=== PATIENT | female | born 1955 | race Caucasian/White ===

== ENCOUNTER 2022-04-11 10:34 | Outpatient (CLI) | payer MEDICARE, BC | END 2022-04-11 10:35 | disposition home or self-care (01) | LOC: CSHMAMMO 10:34 | PROVIDERS: ATTEND Family Medicine | DX: Z12.31 Encounter for screening mammogram for malignant neoplasm of breast (principal) | CPT/HCPCS: 77063; 77067 ==

== ENCOUNTER 2024-04-19 11:56 | Outpatient (CLI) | payer MEDICARE | END 2024-04-19 11:57 | disposition home or self-care (01) | LOC: CSHMAMMO 11:56 | PROVIDERS: ATTEND Student in an Organized Health Care Education/Training Program | DX: Z12.31 Encounter for screening mammogram for malignant neoplasm of breast (principal) | CPT/HCPCS: 77063; 77067 ==

== ENCOUNTER 2024-11-04 09:44 | Outpatient (CLI) | payer MEDICARE | END 2024-11-04 09:45 | disposition home or self-care (01) | LOC: CSHMAMMO 09:44 | PROVIDERS: ATTEND Family Medicine | DX: Z78.0 Asymptomatic menopausal state (principal); M85.89 Other specified disorders of bone density and structure, multiple sites; M81.0 Age-related osteoporosis without current pathological fracture | CPT/HCPCS: 77080 ==